=== PATIENT | female | born 1960 | race Hispanic/Latino ===

== ENCOUNTER 2023-12-15 17:43 | Emergency (ER) | payer BC, MEDICARE ==
[~2023-12-15] VITALS: Ht 162.6 cm; Wt 75.5 kg
[2023-12-15] MEDS ORDERED: ERGOCALCIF200 MCG/1 (18:13)
[2023-12-15] MEDS ORDERED: ENBREL50 MG/1 ML (18:13)
[2023-12-15] MEDS ORDERED: FOLIC ACID0.4 MG PO (18:13)
[2023-12-15] MEDS ORDERED: PLAQUENIL200 MG PO (18:13)
[2023-12-15] MEDS ORDERED: OMEPRAZOLE20 M2 (18:13)
[2023-12-15] MEDS ORDERED: METHOTREXA25 MG/1 ML SC (18:13)
[2023-12-15] MEDS ORDERED: HYZAAR 100-251 EACH (18:13)
[2023-12-15] MEDS ORDERED: NAPROXEN250 MG PO (18:13)
[2023-12-15] MEDS ORDERED: NEURONTIN300 MG PO (18:13)
[2023-12-15] MEDS ORDERED: ROSUVASTATIN CA10 MG (18:13)
[2023-12-15] MEDS: DIPHENHYDRAMINE HCL INJ 50 MG/ML VIAL IV ONE (18:25)
[2023-12-15] MEDS: METOCLOPRAMIDE HCL 10 MG/2ML VIAL IV ONE (18:25)
[2023-12-15] MEDS: SODIUM CHLORIDE 0.9% 1000ML 1,000 ML IV ONE (18:25)
[2023-12-15] MEDS ORDERED: ONDANSETRON ODT4 MG PO (19:36)
[2023-12-15 19:41] VITALS: PULSE 52; RESP 18; TEMP 98.2; O2SAT 96
[2023-12-15 19:46] VITALS: BP 203/100
[2023-12-15] MEDS: CLONIDINE HCL 0.2 MG/24 HR 1 EA PATCH TOP ONE (19:46)
[2023-12-15] MEDS: KETOROLAC TROMETHAMINE 30 MG/ML VIAL IV STA (19:46)
== END 2023-12-15 19:48 | disposition home or self-care (01) ==
LOC: FSED 17:56
DX: G43.109 Migraine with aura, not intractable, without status migrainosus (principal); I10 Essential (primary) hypertension; E78.5 Hyperlipidemia, unspecified; K21.9 Gastro-esophageal reflux disease without esophagitis; M06.9 Rheumatoid arthritis, unspecified; M79.7 Fibromyalgia; F17.210 Nicotine dependence, cigarettes, uncomplicated
CPT/HCPCS: 96374; 96375; 99283; J1200; J1885; J2765; J7030